=== PATIENT | female | born 1980 | race Two or more races ===

== ENCOUNTER 2024-09-23 00:21 | Observation (INO) | payer OTHER ==
[2024-09-23] VITALS (18 sets, daily range): BP systolic 108–123; BP diastolic 62–76; PULSE 78–99; RESP 17–22; TEMP 97.9–100.1; O2SAT 92–98
[~2024-09-23] VITALS: Ht 165.1 cm; Wt 179.1 kg
--- NOTE | 2024-09-23 00:37 | ED.PDOC ---
SOB-HPI HPI Comments 44-year-old female who came to ER via EMS for shortness of breath. Patient denies any medical problems. States for the past 5 days she has been having flu-like symptoms, including fever, chills, congestion, chest pressure, productive cough, shortness of breath, back pains. States entire household is sick with similar symptoms. Patient went to urgent care, and was prescribed antibiotics, which she finished for 5 days. Patient is still presenting with symptoms. Saturating 89% room air, was placed on 4 liters/minute cannula and it improved to 98% Chief Complaint: Shortness of breath Time Seen by MD: 00:36 Reviewed notes: Nurses Notes Information Source: Patient, Emergency Med Personnel Mode of Arrival: EMS Severity: Moderate Timing: Days Duration: Intermittent Context: At Rest, With Light Exertion PE Risk Factors: None History of: Recent Antibiotic Prehospital treatment: Oxygen Associated Signs and Symptoms: Cough, Chest Pain Quality: Pressure Radiation: No Radiation Location: Chest (R), Chest (L) If cough with SOB: Productive Past Medical History PAST MEDICAL HISTORY: Denies Surgical History: Denies all surgeries [employer]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 all [employer]OTE [employer]OL AS[employer]ER Hx Family History Family History: Reviewed,noncontributory to illness Social History Smoker: Non-Smoker Alcohol: Denies ETOH Use Drugs: Denies Drug Use Lives In: Home Constitutional: denies: chills, diaphoresis, fatigue, fever, malaise, sweats, weakness, others EENTM: reports: nose congestion; denies: blurred vision, double vision, ear bleeding, ear discharge, ear drainage, ear pain, ear ringing, eye pain, eye redness, hearing loss, mouth pain, mouth swelling, nasal discharge, nose bleeding, nose pain, photophobia, tearing, throat pain, throat swelling, voice changes, others Respiratory: reports: cough, SOB at rest, shortness of breath, SOB with excertion; denies: hemoptysis, orthopnea, stridor, wheezing, others Cardiovascular: reports: chest pain; denies: dizzy spells, diaphoresis, Dyspnea on exertion, edema, irregular heart beat, left arm pain, lightheadedness, palpitations, PND, syncope, others Gastrointestinal: denies: abdomen distended, abdominal pain, blood streaked bowels, constipated, diarrhea, dysphagia, difficulty swallowing, hematemesis, melena, nausea, poor appetite, poor fluid intake, rectal bleeding, rectal pain, vomiting, others Genitourinary: denies: abnormal vagina bleeding, burning, dyspareunia, dysuria, flank pain, frequency, hematuria, incontinence, pain, , vagina discharge, urgency, others Neurological: denies: dizziness, fainting, headache, left sided numbness, left sided weakness, numbness, paresthesia, pre-existing deficit, right sided numbness, right sided weakness, seizure, speech problems, tingling, tremors, weakness, others Musculoskeletal: reports: back pain; denies: gout, joint pain, joint swelling, muscle pain, muscle stiffness, neck pain, others Integumetry: denies: bruises, change in color, change in hair/nails, dryness, laceration, lesions, lumps, rash, wounds, others Allergic/Immunocompromised: denies: Difficulty Healing, Frequent Infections, Hives, Itching, others Hematologic/Lymphatic: denies: anemia, blood clots, easy bleeding, easy bruisi ng, swollen glands, others Endocrine: denies: excessive hunger, excessive sweating, excessive thirst, exce ssive urination, flushing, intolerance to cold, intolerance to heat, unexplained weight gain, unexplained weight loss, others Psychiatric: denies: anxiety, bipolar disorder, depression, hopeless, panic disorder, schizophrenia, sleepless, suicidal, others Physical Exam General Appearance: No Apparent Distress, Normal HEENT: Normal ENT Inspection, Pharynx Normal, TMs Normal Neck: Full Range of Motion, Non-Tender, Normal, Normal Inspection Respiratory: Chest Non-Tender, Lungs Clear, No Accessory Muscle Use, No Respi ratory Distress, Normal Breath Sounds Cardiovascular: No Edema, No JVD, No Murmur, No Gallop, Normal Peripheral Pulses, Regular Rate/Rhythm Breast Exam: Deferred Gastrointestinal: No Organomegaly, Non Tender, No Pulsatile Mass, Normal Bowel Sounds, Soft Genitalia: Deferred Pelvic: Deferred Rectal: Deferred Extremities: No calf tenderness, Normal capillary refill, Normal inspection, Normal range of motion, Non-tender, No pedal edema Musculoskeletal : Apperance: Normal Neurologic: Alert, floor and wall applier liquid II-XII nml as Tested, No Motor Deficits, Normal Affect, Normal Mood, No Sensory Deficits Cerebellar Function: Normal Reflexes: Normal Skin: Dry, Normal Color, Warm Lymphatic: No Adenopathy Was a procedure done? Was a procedure done?: No Differential Dx Differential Diagnosis: Asthma, Bronchitis, CHF, COPD, Panic Attack, Pneumonia, Respiratory Distress, Pharyngitis, URI X-Ray, Labs, Meds, VS Vital Signs Date Time Temp Pulse Resp B/P (MAP) Pulse Ox O2 Delivery O2 Flow Rate FiO2 09/23/24 00:54 18 95 Nasal Cannula* 4 36 09/23/24 00:37 99.8 117 18 151/77 (101) 97 09/23/24 00:37 18 98 Nasal Cannula* 4 36 09/23/24 00:34 93 Lab Test 09/23/24 01:30 09/23/24 00:40 Range/Units Troponin I High Sensitivity Pending < 3 L </=34 ng/L White Blood Count 3.1 L 4.4-10.8 10^3/uL Red Blood Count 4.95 4.0-5.20 10^6/uL Hemoglobin 11.8 L 12.2-16.2 g/dL Hematocrit 37.7 36.0-46.0 % Mean Corpuscular Volume 76.0 L 80.0-100.0 fL Mean Corpuscular Hemoglobin 23.8 L 28.0-32.0 pg Mean Corpuscular Hemoglobin Concent 31.3 L 32.0-36.0 g/dL Red Cell Distribution Width 20.6 H 11.8-14.3 % Platelet Count 184 140-450 10^3/uL Mean Platelet Volume 8.5 6.9-10.8 fL Neutrophils (%) (Auto) 61.1 37.0-80.0 % Lymphocytes (%) (Auto) 30.3 10.0-50.0 % Monocytes (%) (Auto) 7.5 0.0-12.0 % Eosinophils (%) (Auto) 0.3 0.0-7.0 % Basophils (%) (Auto) 0.8 0.0-2.0 % Neutrophils # (Auto) 1.9 1.6-8.6 10 ^3/uL Lymphocytes # (Auto) 0.9 0.4-5.4 10 ^3/uL Monocytes # (Auto) 0.2 0-1.3 10 ^3/uL Eosinophils # (Auto) 0 0-0.8 10 ^3/uL Basophils # (Auto) 0 0-0.2 10 ^3/uL Nucleated Red Blood Cells 0.2 % Sodium Level 138 136-145 mmol/L Potassium Level 3.8 3.5-5.1 mmol/L Chloride Level 108 H 98-107 mmol/L Carbon Dioxide Level 22 20-31 mmol/L Anion Gap 8 5-15 Blood Urea Nitrogen 9 9-23 mg/dL Creatinine 0.62 0.550-1.02 mg/dL Glomerular Filtration Rate Calc 113 >90 mL/min BUN/Creatinine Ratio 14.5 10.0-20.0 Serum Glucose 119 H 74-106 mg/dL Lactic Acid Level Pending Calcium Level 8.9 8.7-10.4 mg/dL Total Bilirubin 0.3 0.2-1.0 mg/dL Aspartate Amino Transferase (AST) 59 H 13-40 U/L Alanine Aminotransferase (ALT) 40 7-40 U/L Alkaline Phosphatase 148 H 46-116 U/L B-Type Natriuretic Peptide Pending Total Protein 6.8 5.7-8.2 g/dL Albumin 3.8 3.2-4.8 g/dL Current Medications Medications (Trade) Dose Ordered Sig/Arianne Route Start Time Stop Time Status Last Admin Albuterol (Ventolin Medneb) 5 mg ONCE ONCE [facility] 09/23/24 00:30 09/23/24 00:31 DC 09/23/24 00:53 Ipratropium [place] (Atrovent Medneb) 0.5 mg ONCE ONCE [facility] 09/23/24 00:30 09/23/24 00:31 DC 09/23/24 00:53 EXAM: XY CHEST PORTABLE FINDINGS: Lines and tubes: None Chest: The heart size and pulmonary vasculature is within normal limits. Patchy airspace opacities in the bilateral lungs. No pneumothorax. The osseous structures are grossly intact. IMPRESSION: Patchy airspace opacities in the bilateral lungs which could reflect multifocal pneumonia and/or pulmonary edema. Time of 1ST Reevaluation: 00:30 Reevaluation 1ST: Unchanged Time of 2ND Reevaluation: 01:58 Reevaluation 2ND: Unchanged Patient Education/Counseling: Diagnosis, Treatment Family Education/Counseling: No Family Present Departure 1 Departure Time of Disposition: :58 Impression: Primary Impression: Respiratory failure with hypoxia Additional Impression: Multifocal pneumonia Disposition: 09 ADMITTED INPATIENT Condition: Guarded Critical Care Note Critical Care Time?: Yes (35 min-critical care time only) Critical care comment: Total critical care time: Approximately 36 minutes Due to a high probability of clinically significant, life threatening deterioration, the patient required my highest level of preparedness to intervene emergently and I personally spent this critical care time directly and personally managing the patient. This critical care time included obtaining a history; examining the patient; pulse oximetry; ordering and review of studies; arranging urgent treatment with development of a management plan; evaluation of patient's response to treatment; frequent reassessment; and, discussions with other providers. This critical care time was performed to assess and manage the high probability of imminent, life-threatening deterioration that could result in multi-organ failure. It was exclusive of separately billable procedures and treating other patients. Stability Stability form required: No Heart Score Heart Score: Heart Score Response (Comments) Value History N/A 0 EKG N/A 0 Age N/A 0 Risk Factors N/A 0 Troponin N/A 0 Total 0 I personally scribed for JOANNE MÁRQUEZ MD ([email or web address]) on 09/23/24 at 00:37. Electronically submitted by Leonard Tabor ([email or web address]). I personally scribed for JOANNE MÁRQUEZ MD ([email or web address]) on 09/23/24 at 01:56. Electronically submitted by Leonard Tabor ([email or web address]). JOANNE MÁRQUEZ MD Sep 23, 2024 00:37
[2024-09-23] MEDS: IPRATROPIUM BROM 0.5 MG/2.5ML INH SOL HHN ONE (00:53)
[2024-09-23] MEDS: ALBUTEROL SULF 2.5 MG/0.5ML(0.5%) NEB SOLN HHN ONE (00:53)
[2024-09-23 01:14] LABS: Basophils # (auto) 0 10 ^3/uL (0-0.2); Basophils % (auto) 0.8 % (0.0-2.0); Eosinophils # (auto) 0 10 ^3/uL (0-0.8); Lymphocytes # (auto) 0.9 10 ^3/uL (0.4-5.4); Monocytes # (auto) 0.2 10 ^3/uL (0-1.3); Neutrophils # (auto) 1.9 10 ^3/uL (1.6-8.6); Nucleated Red Blood Cells % 0.2 %; Red Blood Cells 4.95 10^6/uL (4.0-5.20); White Blood Cell 3.1 10^3/uL (4.4-10.8)
[2024-09-23 01:16] LABS: Eosinophils % (auto) 0.3 % (0.0-7.0); Hematocrit 37.7 % (36.0-46.0); Hemoglobin 11.8 g/dL (12.2-16.2); Lymphocytes % (auto) 30.3 % (10.0-50.0); Mean Corpuscular Hemoglobin 23.8 pg (28.0-32.0); Mean Corpuscular Hgb Conc. 31.3 g/dL (32.0-36.0); Monocytes % (auto) 7.5 % (0.0-12.0); Neutrophils % (auto) 61.1 % (37.0-80.0); Platelet Count (auto) 184 10^3/uL (140-450); Red Cell Distribution Width 20.6 % (11.8-14.3)
--- NOTE | 2024-09-23 01:32 | DVH ---
EXAM: XY CHEST PORTABLE CLINICAL HISTORY: SOB TECHNIQUE: Single AP view of the chest WID: COMPARISON: None FINDINGS: Lines and tubes: None Chest: The heart size and pulmonary vasculature is within normal limits. Patchy airspace opacities in the bilateral lungs. No pneumothorax. The osseous structures are grossly intact. IMPRESSION: Patchy airspace opacities in the bilateral lungs which could reflect multifocal pneumonia and/or pulm onary edema.
[2024-09-23 01:34] LABS: Albumin 3.8 g/dL (3.2-4.8); Anion Gap 8 (5-15); BUN/Creatinine Ratio 14.5 (10.0-20.0); Calcium 8.9 mg/dL (8.7-10.4); Carbon Dioxide 22 mmol/L (20-31); Potassium 3.8 mmol/L (3.5-5.1); Sodium 138 mmol/L (136-145); Total Protein 6.8 g/dL (5.7-8.2)
[2024-09-23 01:35] LABS: Alanine Aminotransferase 40 U/L (7-40); Alkaline Phosphatase 148 U/L (46-116); Aspartate Aminotransferase 59 U/L (13-40); Bilirubin, Total 0.3 mg/dL (0.2-1.0); Blood Urea Nitrogen 9 mg/dL (9-23); Chloride 108 mmol/L (98-107); Glucose 119 mg/dL (74-106)
[2024-09-23] MEDS: ACETAMINOPHEN 325 MG TAB PO ONE (05:07)
[2024-09-23] MEDS: predniSONE 20 MG TAB PO ONE (05:07)
[2024-09-23] MEDS: IPRATROPIUM BROM 0.5 MG/2.5ML INH SOL NEB ONE (05:10)
[2024-09-23] MEDS: ALBUTEROL SULF 2.5 MG/0.5ML(0.5%) NEB SOLN NEB ONE (05:10)
[2024-09-23] MEDS: cefTRIAXone 1GM/50ML D5W 50 ML IV ONE (05:17)
[2024-09-23] MEDS: AZITHROMYCIN 500MG/ 250ML 250 ML IV ONE (05:42)
[2024-09-23] MEDS: DexAMETHasone SOD PHOS 10MG/1ML VIAL INJ IV ONE (05:58)
[2024-09-23] MEDS ORDERED: NITROGLYCERIN 0.4 MG SL TAB SL PRN (06:00)
[2024-09-23] MEDS: IPRATROPIUM BROM 0.5 MG/2.5ML INH SOL NEB SCH (06:00)
[2024-09-23] MEDS: ALBUTEROL SULF 2.5 MG/0.5ML(0.5%) NEB SOLN NEB SCH (06:00)
[2024-09-23] MEDS ORDERED: MORPHINE SULFATE INJ 2 MG/ml SYRG IV PRN (06:00)
[2024-09-23] MEDS ORDERED: LEVO25TA6 PO (06:17)
[2024-09-23] MEDS ORDERED: BENZ200C64 PO (06:18)
[2024-09-23] MEDS ORDERED: IBUP-1455 PO (06:18)
--- NOTE | 2024-09-23 06:45 | ECG ---
[facility] Test Date: 2024-09-23 Test Time: 00:34:51 Pat Name: KIKI MEDEIROS Department: ER Room: 0250T Gender: F [employer] Picture Set Up Worker: IVETTE : 1980 Requested By: JOANNE MÁRQUEZ Order Number: [id number] Reading MD: Melo Cruz Measurements Intervals [place] Rate: 93 P: 24 OH: 148 QRS: 43 QRSD: 99 T: 6 QT: 373 QTc: 464 Interpretive Statements Sinus rhythm Low voltage, precordial leads Electronically Signed On 09-23-2024 14:49:46 PST by Melo Cruz Please click the below link to view image of tracing.
--- NOTE | 2024-09-23 07:00 | DVHHP2 ---
Admitting Diagnosis: Acute respiratory failure with hypoxia due to bilateral PNA History of Present Illness HPI 44 y.o. female with morbid obesity arrived to the ED c/o SOB and cough that started 5 days ago and worsened. Patient informed that her children and her are also sick. Patient went to 5 days ago and was given Abx but felt no improvement. She came to the ER stating that she has SOB and would like to be admitted Home Meds Reported Medications Benzonatate (Benzonatate) 200 Mg Cap, 1 CAP PO TID 09/23/24 Ibuprofen Micronized (Ibuprofen) 800 Mg Tab, 1 TAB PO Q8HPRN PRN for PAIN 09/23/24 Levothyroxine Sodium (Levothyroxine Sodium) 25 Mcg Tab, 1 TAB PO DAILY 09/23/24 Past Medical History Patient Family History: Diabetes mellitus G8 FATHER Review of Systems Pulmonary/Respiratory: Dyspnea, Cough H&P Exam Vital Signs Vital Signs Date Time Temp Pulse Resp B/P (MAP) Pulse Ox O2 Delivery O2 Flow Rate FiO2 09/23/24 06:42 88 20 98 09/23/24 06:38 Nasal Cannula* 4 36 09/23/24 05:00 100.1 122/73 (89) 100.1 General Appeara: Mild distress, Obese Head Exam: Normal inspection Neck Exam: Normal inspection Eye Exam: bilateral eye PERRL, bilateral eye EOMI Pulmonary/Respiratory: Rhonci Cardiovascular/Chest: Tachycardia Abdominal Exam: No tenderness Neuro/Mental St: Alert, Oriented Labs/Xrays Labs Test 09/23/24 05:50 09/23/24 01:30 09/23/24 00:40 Range/Units Troponin I High Sensitivity < 3 L </=34 ng/L White Blood Count 3.1 L 4.4-10.8 10^3/uL Red Blood Count 4.95 4.0-5.20 10^6/uL Hemoglobin 11.8 L 12.2-16.2 g/dL Hematocrit 37.7 36.0-46.0 % Mean Corpuscular Volume 76.0 L 80.0-100.0 fL Mean Corpuscular Hemoglobin 23.8 L 28.0-32.0 pg Mean Corpuscular Hemoglobin Concent 31.3 L 32.0-36.0 g/dL Red Cell Distribution Width 20.6 H 11.8-14.3 % Platelet Count 184 140-450 10^3/uL Mean Platelet Volume 8.5 6.9-10.8 fL Neutrophils (%) (Auto) 61.1 37.0-80.0 % Lymphocytes (%) (Auto) 30.3 10.0-50.0 % Monocytes (%) (Auto) 7.5 0.0-12.0 % Eosinophils (%) (Auto) 0.3 0.0-7.0 % Basophils (%) (Auto) 0.8 0.0-2.0 % Neutrophils # (Auto) 1.9 1.6-8.6 10 ^3/uL Lymphocytes # (Auto) 0.9 0.4-5.4 10 ^3/uL Monocytes # (Auto) 0.2 0-1.3 10 ^3/uL Eosinophils # (Auto) 0 0-0.8 10 ^3/uL Basophils # (Auto) 0 0-0.2 10 ^3/uL Nucleated Red Blood Cells 0.2 % Sodium Level 138 136-145 mmol/L Potassium Level 3.8 3.5-5.1 mmol/L Chloride Level 108 H 98-107 mmol/L Carbon Dioxide Level 22 20-31 mmol/L Anion Gap 8 5-15 Blood Urea Nitrogen 9 9-23 mg/dL Creatinine 0.62 0.550-1.02 mg/dL Glomerular Filtration Rate Calc 113 >90 mL/min BUN/Creatinine Ratio 14.5 10.0-20.0 Serum Glucose 119 H 74-106 mg/dL Lactic Acid Level 1.3 0.4-2.0 mmol/L Calcium Level 8.9 8.7-10.4 mg/dL Total Bilirubin 0.3 0.2-1.0 mg/dL Aspartate Amino Transferase (AST) 59 H 13-40 U/L Alanine Aminotransferase (ALT) 40 7-40 U/L Alkaline Phosphatase 148 H 46-116 U/L B-Type Natriuretic Peptide 16.80 0-100 pg/mL Total Protein 6.8 5.7-8.2 g/dL Albumin 3.8 3.2-4.8 g/dL Assessment/Plan Problem List: (1) Respiratory failure with hypoxia (2) Multifocal pneumonia Plan Oxygen, RT, steroids, Abx, Pulmonology consult Plan discussed with: Patient CORAL CASIANO MD Sep 23, 2024 07:00
[2024-09-23 07:18] LABS: COVID19 ANTIGEN SOFIA FIA NEGATIVE (NEGATIVE); Rapid Influenza A Negative (Negative); Rapid Influenza B Negative (Negative)
[2024-09-23] MEDS ORDERED: levoFLOXacin 500MG 100 ML IV SCH (10:00)
[2024-09-23] MEDS: levoFLOXacin 250MG 50 ML IV SCH (11:25)
[2024-09-23 11:42] LABS: Base Excess -3.2 mmol/L (-2.0-3.0)
--- NOTE | 2024-09-23 12:44 | DVHINCON2 ---
Date of service: Sep 23, [address] Vargas Reason for Consultation Pneumonia History of Present Illness A 44-year-old woman with PMHx of morbid obesity s/p gastric sleeve, presents to the ED today c/o shortness of breath and cough that started 5 days ago and worsened. Patient relates that her children and are also sick. She went to 5 days ago and was given antibiotics but failed to improve. Patient thus presented to ER d/t SOB, requesting admission. Patient was admitted for further care and pulmonary consultation is requested for evaluation and management of acute hypoxic respiratory failure and pneumonia. Review of Systems: 14-point review of systems negative unless otherwise noted above. Past Medical History: Morbid obesity Past Surgical History: Gastric sleeve procedure Medications: Reviewed. Allergies: Penicillins. Family History: Diabetes mellitus. Social History: Nonsmoker. No alcohol or illicit drug use. Family History: Diabetes mellitus G8 FATHER Allergies: Coded Allergies: Penicillins (Verified Allergy, Unknown, 09/23/24) Home Meds Active Scripts Ipratropium-Albuterol (Ipratropium [place]/Albut) 1 Paresh Paresh, 1 PARESH IN Q6HR for 30 Days, #90 ML 2 Refills Prov:YOSEPH VARGAS DO 09/25/24 Prednisone (Prednisone) 20 Mg Tab, 20 MG PO DAILY, #5 TAB 0 Refills Prov:YOSEPH VARGAS DO 09/25/24 Levofloxacin Hemihydrate (LEVOFLOXACIN) 750 Mg Tab, 750 MG PO DAILY, #10 TAB 0 Refills Prov:YOSEPH VARGAS DO 09/25/24 Reported Medications Benzonatate (Benzonatate) 200 Mg Cap, 1 CAP PO TID 09/23/24 Ibuprofen Micronized (Ibuprofen) 800 Mg Tab, 1 TAB PO Q8HPRN PRN for PAIN 09/23/24 Levothyroxine Sodium (Levothyroxine Sodium) 25 Mcg Tab, 1 TAB PO DAILY 09/23/24 Current Medications Current Medications Medications (Trade) Dose Ordered Sig/Arianne Route PRN Reason Start Time Stop Time Status Last Admin Nitroglycerin (Ntrostat Sublingual) 0.4 mg Q5MINP PRN SL FOR CHEST PAIN 09/23/24 06:00 Morphine Sulfate 2 mg Q30M PRN IV FOR CHEST PAIN 09/23/24 06:00 Levofloxacin/ Dextrose 100 ml @ 100 mls/hr DAILY IV 09/23/24 10:00 09/23/24 10:44 DC Dexamethasone Sodium Phosphate (Decadron Injection) 6 mg DAILY IV 09/24/24 10:00 Albuterol (Ventolin Medneb) 2.5 mg Q6HR NEB 09/23/24 06:00 09/23/24 11:43 Ipratropium [place] (Atrovent Medneb) 0.5 mg Q6HP NEB 09/23/24 06:00 09/23/24 11:43 Levofloxacin 50 ml @ 50 mls/hr DAILY@1100,1200 IV 09/23/24 11:00 09/23/24 12:30 Acetaminophen/ Hydrocodone Bitart ([place] 5/325MG Tab) 1 tab Q6HPRN PRN PO MODERATE PAIN (4-6 PAIN SCALE) 09/23/24 11:15 Acetaminophen/ Hydrocodone Bitart ([place] 10/325MG Tab) 1 tab Q6HP PRN PO SEVERE PAIN (7-10 PAIN SCALE) 09/23/24 11:15 Acetaminophen (Tylenol Tablet) 325 mg Q4HP PRN PO MILD PAIN (1-3 PAIN SCALE) 09/23/24 11:15 Vital Signs Vital Signs Date Time Temp Pulse Resp B/P (MAP) Pulse Ox O2 Delivery O2 Flow Rate FiO2 09/23/24 11:48 94 Nasal Cannula 4.0 09/23/24 11:48 36 09/23/24 11:43 88 20 09/23/24 09:50 98.3 108/62 (77) 98.3 Physical Exam Gen.: Patient lying in bed in no apparent distress. On supplemental oxygen. Head: Normocephalic, atraumatic. Eyes: EOMI/PERRLA. Ears: Normal hearing. Normal anatomy. Neck/trachea: Trachea midline, supple. Nose: Normal external anatomy. Mouth: Moist mucous membranes. Chest: Decreased air entry bilaterally. No wheezing or rhonchi. Cardiovascular: Positive S1, positive S2. Regular rate and rhythm. Abdomen: Positive bowel sounds in all 4 quadrants. Soft, non-tender, non-distended. : Deferred. Rectal: Deferred. Skin: Warm, dry. Intact. Extremities: 2+ radial pulses bilaterally. No lower extremity edema. Neuro: Awake, alert, oriented x3. No gross motor or sensory deficits. Cranial nerves II through XII intact. Gait not assessed. Labs/Diagnostic Data Labs Test 09/23/24 11:25 09/23/24 05:50 09/23/24 01:30 09/23/24 00:40 Range/Units Blood Gas Specimen Type Arterial Blood Gas Sample Site Right brachial Blood Gas Patient Temperature 37.0 Arterial Blood Date Drawn [id number] Arterial Blood pH 7.432 7.350-7.450 Arterial Blood Partial Pressure CO2 30.8 L 32.0-45.0 mmHg Arterial Blood Partial Pressure O2 88.0 83.0-108.0 mmHg Arterial Blood HCO3 20.1 L 21.0-28.0 mmol/L Arterial Blood Oxygen Saturation 95.9 94.0-98.0 % Arterial Blood Base Excess -3.2 L -2.0-3.0 mmol/L Arterial Blood Oxyhemoglobin 95.0 94.0-98.0 % Arterial Blood Carboxyhemoglobin 0.7 0.5-1.5 % Arterial Blood Methemoglobin 0.2 0.0-1.5 % Germain Test Yes Blood Gas Total Hemoglobin 12.90 12.0-16.0 g/dL Blood Gas Modality Nasal cannula FiO2 % 36.0 Influenza Type A Antigen Negative Negative Influenza Type B Antigen Negative Negative SARS-CoV-2 Antigen (Rapid) Negative NEGATIVE Troponin I High Sensitivity < 3 L </=34 ng/L White Blood Count 3.1 L 4.4-10.8 10^3/uL Red Blood Count 4.95 4.0-5.20 10^6/uL Hemoglobin 11.8 L 12.2-16.2 g/dL Hematocrit 37.7 36.0-46.0 % Mean Corpuscular Volume 76.0 L 80.0-100.0 fL Mean Corpuscular Hemoglobin 23.8 L 28.0-32.0 pg Mean Corpuscular Hemoglobin Concent 31.3 L 32.0-36.0 g/dL Red Cell Distribution Width 20.6 H 11.8-14.3 % Platelet Count 184 140-450 10^3/uL Mean Platelet Volume 8.5 6.9-10.8 fL Neutrophils (%) (Auto) 61.1 37.0-80.0 % Lymphocytes (%) (Auto) 30.3 10.0-50.0 % Monocytes (%) (Auto) 7.5 0.0-12.0 % Eosinophils (%) (Auto) 0.3 0.0-7.0 % Basophils (%) (Auto) 0.8 0.0-2.0 % Neutrophils # (Auto) 1.9 1.6-8.6 10 ^3/uL Lymphocytes # (Auto) 0.9 0.4-5.4 10 ^3/uL Monocytes # (Auto) 0.2 0-1.3 10 ^3/uL Eosinophils # (Auto) 0 0-0.8 10 ^3/uL Basophils # (Auto) 0 0-0.2 10 ^3/uL Nucleated Red Blood Cells 0.2 % Sodium Level 138 136-145 mmol/L Potassium Level 3.8 3.5-5.1 mmol/L Chloride Level 108 H 98-107 mmol/L Carbon Dioxide Level 22 20-31 mmol/L Anion Gap 8 5-15 Blood Urea Nitrogen 9 9-23 mg/dL Creatinine 0.62 0.550-1.02 mg/dL Glomerular Filtration Rate Calc 113 >90 mL/min BUN/Creatinine Ratio 14.5 10.0-20.0 Serum Glucose 119 H 74-106 mg/dL Lactic Acid Level 1.3 0.4-2.0 mmol/L Calcium Level 8.9 8.7-10.4 mg/dL Total Bilirubin 0.3 0.2-1.0 mg/dL Aspartate Amino Transferase (AST) 59 H 13-40 U/L Alanine Aminotransferase (ALT) 40 7-40 U/L Alkaline Phosphatase 148 H 46-116 U/L B-Type Natriuretic Peptide 16.80 0-100 pg/mL Total Protein 6.8 5.7-8.2 g/dL Albumin 3.8 3.2-4.8 g/dL Assessment Impression: Acute hypoxic respiratory failure Multifocal Pneumonia, likely gram negative Atelectasis Morbid obesity, BMI 65.7 s/p gastric sleeve Plan: Supplemental oxygen 4 LPM NC Titrate to keep O2 sats above 92%. Taper O2 as tolerated. ABG reviewed, compensated. CXR notable for bilateral patchy airspace opacities which could reflect multifocal pneumonia and/or pulmonary edema. Continue bronchodilators. Continue antibiotics for pneumonia Incentive spirometry d/t atelectasis Monitor renal function. Monitor electrolytes. Supplement as necessary. Monitor ins and outs. Diet and lifestyle modifications for weight reduction Morbid obesity - complicates all care DVT prophylaxis. Prognosis: Poor given patient's multiple co-morbidities. Rest of plan per hospitalist and other consultants. Thank you, Dr. Vargas, for allowing me to participate in this patient's care. Further recommendations will depend on the patient's clinical course. Please do not hesitate to contact me if you have any questions or concerns. This medical document was created using an electronic medical record system with [employer] dictation system. Although these documentations are being carefully reviewed, there may still be some phonetic and typographical changes. The errors are purely typographical, due to imperfection on the software program, and do not reflect any compromise in the patient's medical care. Plan discussed with: Patient, Other (ELENA Thurston/Dr. Vargas) FALLON MANRIQUE MD Sep 23, 2024 12:44
[2024-09-23] MEDS: HYDROcodone-ACET 5/325MG TAB PO PRN (20:23)
[2024-09-24] VITALS (16 sets, daily range): BP systolic 115–127; BP diastolic 20–87; PULSE 78–123; RESP 18–22; TEMP 97.3–98.7; O2SAT 90–98
[2024-09-24 07:39] LABS: Alanine Aminotransferase 36 U/L (7-40); Albumin 3.7 g/dL (3.2-4.8); Anion Gap 7 (5-15); Basophils # (auto) 0 10 ^3/uL (0-0.2); Carbon Dioxide 26 mmol/L (20-31); Chloride 107 mmol/L (98-107); Eosinophils # (auto) 0 10 ^3/uL (0-0.8); Mean Corpuscular Volume 75.3 fL (80.0-100.0); Monocytes # (auto) 0.4 10 ^3/uL (0-1.3); Potassium 4.1 mmol/L (3.5-5.1); Red Cell Distribution Width 20.3 % (11.8-14.3); Sodium 140 mmol/L (136-145); Total Protein 6.7 g/dL (5.7-8.2)
[2024-09-24 07:41] LABS: Basophils % (auto) 0.2 % (0.0-2.0); Hemoglobin 11.7 g/dL (12.2-16.2); Lymphocytes # (auto) 0.8 10 ^3/uL (0.4-5.4); Lymphocytes % (auto) 20.8 % (10.0-50.0); Mean Corpuscular Hemoglobin 24.5 pg (28.0-32.0); Mean Corpuscular Hgb Conc. 32.6 g/dL (32.0-36.0); Monocytes % (auto) 9.8 % (0.0-12.0); Neutrophils # (auto) 2.7 10 ^3/uL (1.6-8.6); Neutrophils % (auto) 69.2 % (37.0-80.0); Nucleated Red Blood Cells % 0.1 %; Platelet Count (auto) 176 10^3/uL (140-450); Red Blood Cells 4.78 10^6/uL (4.0-5.20)
[2024-09-24 07:42] LABS: Alkaline Phosphatase 123 U/L (46-116); Aspartate Aminotransferase 52 U/L (13-40); Bilirubin, Total 0.3 mg/dL (0.2-1.0); Blood Urea Nitrogen 9 mg/dL (9-23); Glucose 117 mg/dL (74-106)
[2024-09-24] MEDS: DexAMETHasone SOD PHOS 10MG/1ML VIAL INJ IV SCH (10:11)
--- NOTE | 2024-09-24 13:01 | DVH ---
CLINICAL INFORMATION: 44 years old, Female; Further eval resp failure, pneumonia vs pulm vasc conge stion. TECHNIQUE: Axial CT images of the chest were obtained after the uneventful administration of 100 mL o f Omnipaque 300 IV contrast. Coronal and sagittal reformatted images were obtained, reviewed, and sto red. One or more of the following dose reduction techniques were used: Automated exposure control. Ad justment of mA and/or kV according to patient size. CTDIvol = 18.53 mGy DLP = 721.78 mGy-cm COMPARISON: Chest radiograph dated 09/23/2024. FINDINGS: Aorta: No aneurysm or dissection. Cardiac: Heart size is within normal limits. No significant calcification. Mediastinum/andrew: No mass or adenopathy. Lungs: Bilateral perihilar airspace consolidations additional smaller patchy consolidations and groun d-glass opacities in both lungs no pneumothorax or pleural effusion Pulmonary arteries: No gross abnormality. Chest wall: No mass or other abnormality. Upper abdomen: Hepatic steatosis. Cholecystectomy. Bones: No acute fracture or suspicious intraosseous lesions. IMPRESSION: 1. Bilateral multifocal consolidations and ground-glass opacities, may be infectious or inflammatory in nature, including multifocal pneumonia pulmonary edema could also have a similar appearance in the appropriate clinical setting. Correlate with clinical findings. 2. Hepatic steatosis.
--- NOTE | 2024-09-24 13:30 | DVHPN2 ---
Progress Note - Dictate Date Seen: Sep 24, 2024 Medical Necessity Reason Pt with a Central, PICC or Fol: No Subjective Patient continues to note shortness of breath especially when ambulating. vital signs Vital Sign Date Time Temp Pulse Resp B/P (MAP) Pulse Ox O2 Delivery O2 Flow Rate FiO2 09/24/24 13:01 81 18 96 09/24/24 12:56 Nasal Cannula* 3 32 09/24/24 09:00 97.3 125/78 (94) 97.3 Total Intake and Output 09/23/24 09/23/24 09/24/24 15:00 23:00 07:00 Intake Total 100 ml 860 ml 600 ml Balance 100 ml 860 ml 600 ml medications Current Medications Medications Dose Ordered Sig/Arianne Route Start Time Stop Time Status Last Admin Dose Admin Nitroglycerin 0.4 mg Q5MINP PRN SL 09/23/24 06:00 Morphine Sulfate 2 mg Q30M PRN IV 09/23/24 06:00 Dexamethasone Sodium Phosphate 6 mg DAILY IV 09/24/24 10:00 09/24/24 10:11 6 MG Albuterol 2.5 mg Q6HR NEB 09/23/24 06:00 09/24/24 12:56 2.5 MG Ipratropium [place] 0.5 mg Q6HP NEB 09/23/24 06:00 09/24/24 12:56 0.5 MG Levofloxacin 50 ml @ 50 mls/hr DAILY@1100,1200 IV 09/23/24 11:00 09/24/24 12:26 50 MLS/HR Acetaminophen/ Hydrocodone Bitart 1 tab Q6HPRN PRN PO 09/23/24 11:15 09/24/24 10:11 1 TAB Acetaminophen/ Hydrocodone Bitart 1 tab Q6HP PRN PO 09/23/24 11:15 Acetaminophen 325 mg Q4HP PRN PO 09/23/24 11:15 objective General appearance: No acute distress. Morbidly obese Respiratory: Coarse crackles Cardiovascular: Regular rate and rhythm, no murmurs. No edema Abdomen: Soft, nondistended, nontender, bowel sounds present MSK: Normal range of motion. Neuro: Alert, no neurological deficits Psych: Appropriate mood and affect. laboratory and microbiology Laboratory Tests 09/24/24 07:04 Test 09/24/24 07:04 Range/Units Serum Glucose 117 H 74-106 mg/dL Problem List 1. Acute Respiratory Failure 2. Pneumonia due to either gram positive or gram negative organism 3. Morbid Obesity Assessment/Plan -Unlikely obesity hypoventilation syndrome given ABG findings -CT chest ordered to further evaluate pneumonia versus pulmonary edema. Continues to note both possibilities of pulmonary edema and pneumonia. -TTE ordered to evaluate underlying CHF. BNP may be falsely low due to morbid obesity. Cardiology consulted. -Pulmonary consulted -Lasix 40 mg IV x 1 -Goal pulse ox greater than 92% -Continue DuoNebs and steroids -Home oxygen ordered -Full Code Plan discussed with: Patient YOSEPH VARGAS Sep 24, 2024 13:30
[2024-09-24] MEDS: IOHEXOL 300 MG/ML 100ML BOTTLE IJ ONE (14:08)
--- NOTE | 2024-09-24 14:59 | DVHINCON2 ---
Date of service: Sep 24, 2024 Referring Physician Luz Reason for Consultation R/o CHF History of Present Illness This is a 44-year-old female without any PMH who was brought in by EMS with complaint of shortness of breath. Patient states for the past 5 days she has been having flu-like symptoms, including fever, chills, congestion, chest pressure, productive cough, shortness of breath, back pains. Patient reports her entire household is sick with similar symptoms. Patient went to a local urgent care, and was prescribed antibiotics, which she finished for 5 days. Saturating 89% room air, was placed on 4 liters/minute cannula and it improved to 98%. Troponin x2 is negative. Chest x-ray shows patchy airspace opacities in the bilateral lungs which could reflect multifocal pneumonia and/or pulmonary edema. CT chest revealed bilateral multifocal consolidations and ground-glass opacities, may be infectious or inflammatory in nature, including multifocal pneumonia pulmonary edema could also have a similar appearance in the appropriate clinical setting. Hepatic steatosis. Patient was admitted to the hospital. I am asked to consult on this patient. Family History: Diabetes mellitus G8 FATHER Allergies: Coded Allergies: Penicillins (Verified Allergy, Unknown, 09/23/24) Home Meds Reported Medications Benzonatate (Benzonatate) 200 Mg Cap, 1 CAP PO TID 09/23/24 Ibuprofen Micronized (Ibuprofen) 800 Mg Tab, 1 TAB PO Q8HPRN PRN for PAIN 09/23/24 Levothyroxine Sodium (Levothyroxine Sodium) 25 Mcg Tab, 1 TAB PO DAILY 09/23/24 Current Medications Current Medications Medications (Trade) Dose Ordered Sig/Arianne Route PRN Reason Start Time Stop Time Status Last Admin Dexamethasone Sodium Phosphate (Decadron Injection) 6 mg DAILY IV 09/24/24 10:00 09/24/24 10:11 Review of Systems Constitutional: denies: chills, diaphoresis, fatigue, fever, malaise, sweats, weakness, others EENTM: reports: nose congestion; denies: blurred vision, double vision, ear bleeding, ear discharge, ear drainage, ear pain, ear ringing, eye pain, eye redness, hearing loss, mouth pain, mouth swelling, nasal discharge, nose bleeding, nose pain, photophobia, tearing, throat pain, throat swelling, voice changes, others Respiratory: reports: cough, SOB at rest, shortness of breath, SOB with excertion; denies: hemoptysis, orthopnea, stridor, wheezing, others Cardiovascular: reports: chest pain; denies: dizzy spells, diaphoresis, Dyspnea on exertion, edema, irregular heart beat, left arm pain, lightheadedness, palpitations, PND, syncope, others Gastrointestinal: denies: abdomen distended, abdominal pain, blood streaked bowels, constipated, diarrhea, dysphagia, difficulty swallowing, hematemesis, melena, nausea, poor appetite, poor fluid intake, rectal bleeding, rectal pain, vomiting, others Genitourinary: denies: abnormal vagina bleeding, burning, dyspareunia, dysuria, flank pain, frequency, hematuria, incontinence, pain, , vagina discharge, urgency, others Neurological: denies: dizziness, fainting, headache, left sided numbness, left sided weakness, numbness, paresthesia, pre-existing deficit, right sided numbness, right sided weakness, seizure, speech problems, tingling, tremors, weakness, others Musculoskeletal: reports: back pain; denies: gout, joint pain, joint swelling, muscle pain, muscle stiffness, neck pain, others Integumetry: denies: bruises, change in color, change in hair/nails, dryness, laceration, lesions, lumps, rash, wounds, others Allergic/Immunocompromised: denies: Difficulty Healing, Frequent Infections, Hives, Itching, others Hematologic/Lymphatic: denies: anemia, blood clots, easy bleeding, easy bruising, swollen glands, others Endocrine: denies: excessive hunger, excessive sweating, excessive thirst, excessive urination, flushing, intolerance to cold, intolerance to heat, unexplained weight gain, unexplained weight loss, others Psychiatric: denies: anxiety, bipolar disorder, depression, hopeless, panic disorder, schizophrenia, sleepless, suicidal, others Vital Signs Vital Signs Date Time Temp Pulse Resp B/P (MAP) Pulse Ox O2 Delivery O2 Flow Rate FiO2 09/24/24 13:01 81 18 96 09/24/24 12:56 Nasal Cannula* 3 32 09/24/24 09:00 97.3 125/78 (94) 97.3 Physical Exam GENERAL: Awake, alert, oriented. Morbidly obese. LUNGS: Diminished breath sounds. CARDIOVASCULAR: Heart sounds are good. ABDOMEN: Soft. Labs/Diagnostic Data Labs Test 09/24/24 07:04 09/23/24 11:25 09/23/24 05:50 09/23/24 01:30 Range/Units White Blood Count 4.0 #L 4.4-10.8 10^3/uL Red Blood Count 4.78 4.0-5.20 10^6/uL Hemoglobin 11.7 L 12.2-16.2 g/dL Hematocrit 36.0 36.0-46.0 % Mean Corpuscular Volume 75.3 L 80.0-100.0 fL Mean Corpuscular Hemoglobin 24.5 L 28.0-32.0 pg Mean Corpuscular Hemoglobin Concent 32.6 32.0-36.0 g/dL Red Cell Distribution Width 20.3 H 11.8-14.3 % Platelet Count 176 140-450 10^3/uL Mean Platelet Volume 7.9 6.9-10.8 fL Neutrophils (%) (Auto) 69.2 37.0-80.0 % Lymphocytes (%) (Auto) 20.8 10.0-50.0 % Monocytes (%) (Auto) 9.8 0.0-12.0 % Eosinophils (%) (Auto) 0.0 0.0-7.0 % Basophils (%) (Auto) 0.2 0.0-2.0 % Neutrophils # (Auto) 2.7 1.6-8.6 10 ^3/uL Lymphocytes # (Auto) 0.8 0.4-5.4 10 ^3/uL Monocytes # (Auto) 0.4 0-1.3 10 ^3/uL Eosinophils # (Auto) 0 0-0.8 10 ^3/uL Basophils # (Auto) 0 0-0.2 10 ^3/uL Nucleated Red Blood Cells 0.1 % Sodium Level 140 136-145 mmol/L Potassium Level 4.1 3.5-5.1 mmol/L Chloride Level 107 98-107 mmol/L Carbon Dioxide Level 26 20-31 mmol/L Anion Gap 7 5-15 Blood Urea Nitrogen 9 9-23 mg/dL Creatinine 0.60 0.550-1.02 mg/dL Glomerular Filtration Rate Calc 114 >90 mL/min BUN/Creatinine Ratio 15.0 10.0-20.0 Serum Glucose 117 H 74-106 mg/dL Calcium Level 9.0 8.7-10.4 mg/dL Total Bilirubin 0.3 0.2-1.0 mg/dL Aspartate Amino Transferase (AST) 52 H 13-40 U/L Alanine Aminotransferase (ALT) 36 7-40 U/L Alkaline Phosphatase 123 H 46-116 U/L Total Protein 6.7 5.7-8.2 g/dL Albumin 3.7 3.2-4.8 g/dL Beta HCG, Quantitative 1.4 L 1.5-4.2 mIU/mL Blood Gas Specimen Type Arterial Blood Gas Sample Site Right brachial Blood Gas Patient Temperature 37.0 Arterial Blood Date Drawn [id number] Arterial Blood pH 7.432 7.350-7.450 Arterial Blood Partial Pressure CO2 30.8 L 32.0-45.0 mmHg Arterial Blood Partial Pressure O2 88.0 83.0-108.0 mmHg Arterial Blood HCO3 20.1 L 21.0-28.0 mmol/L Arterial Blood Oxygen Saturation 95.9 94.0-98.0 % Arterial Blood Base Excess -3.2 L -2.0-3.0 mmol/L Arterial Blood Oxyhemoglobin 95.0 94.0-98.0 % Arterial Blood Carboxyhemoglobin 0.7 0.5-1.5 % Arterial Blood Methemoglobin 0.2 0.0-1.5 % Germain Test Yes Blood Gas Total Hemoglobin 12.90 12.0-16.0 g/dL Blood Gas Modality Nasal cannula FiO2 % 36.0 Influenza Type A Antigen Negative Negative Influenza Type B Antigen Negative Negative SARS-CoV-2 Antigen (Rapid) Negative NEGATIVE Troponin I High Sensitivity < 3 L </=34 ng/L Test 09/23/24 00:40 Range/Units Lactic Acid Level 1.3 0.4-2.0 mmol/L B-Type Natriuretic Peptide 16.80 0-100 pg/mL Microbiology Date/Time Source Procedure Growth Status 09/23/24 00:40 Blood Blood Culture - Preliminary NO GROWTH AFTER 24 HOURS OF INCUBATION. Resulted Assessment Acute respiratory failure. Pneumonia. Morbid obesity. Plan/Recommendation I agree with your ongoing assessment and care of plan. Morphine and [place] for pain management. Echocardiogram. Diuretics with Lasix. IV antibiotics as ordered. Additional plan as per the hospital course. A total of 45 minutes was spent reviewing the patient record, examining the patient, making a diagnostic and therapeutic plan, discussing this plan with medical personnel, following up on diagnostic studies and following the patient for clinical stability excluding any and all procedures. At least 50% of this time was spent in direct, [id number] contact. Plan discussed with: Patient DEANN BOLIVAR MD Sep 24, 2024 14:01
[2024-09-24] MEDS: FUROSEMIDE 40 MG/4 ML VIAL IV ONE (15:25)
[2024-09-24] MEDS: ACETAMINOPHEN 325 MG TAB PO PRN (15:38)
--- NOTE | 2024-09-24 16:28 | DVHSR ---
APPROVED REPORT EXAM: LIMITED Two-dimensional and M-mode echocardiogram with Doppler and color Doppler. Blood Pressure: 125/78 mmHg INDICATION Pulmonary Edema Rule Out CHF RISK FACTORS Obesity: Height: 5' 5", Weight: 393 DIMENSIONS LVDd5.0 (3.8-5.7cm)LA (2D)3.9 (1.9-4.0cm)Aortic Root3.2 (2.0-3.7cm) LVDs3.4 (2.5-4.0cm)LA (MM) (1.9-4.0cm)Aortic Cusp Exc2.1 (1.5-2.0cm) EF (%) 58.0 (55-70%)Rt. Atrium4.3 (1.9-4.0cm)Asc. Aorta cm IVSd1.3 (0.7-1.1cm)RV (D) (1.8-2.4cm) PWd1.3 (0.7-1.1cm) Mitral Valve MitralMitral Stenosis E wave1.20m/sMV Mean GR.mmHg A wave0.80m/sMV Peak GR.mmHg E/A ratio1.52D MVAcm2 Aortic Valve Aortic ValveAortic Stenosis V11.20m/Fred Mean GR.10mmHg V22.00m/Fred Peak GR.17mmHg LVOT Diameter2.4 (1.8-2.4cm)Doppler AVA2.71cm2 Pulmonic Valve V21.00m/s Other Information Quality : Technically LimitedRhythm : Technically limited study due to body habitus. Conclusion Technically good study. Sinus rhythm. Normal chamber sizes. Valves are normal. EF of 60% with normal RV function. Dopplers unremarkable. No pericardial effusion masses or vegetations.
--- NOTE | 2024-09-24 21:22 | DVHPN2 ---
Progress Note - Dictate Date Seen: Sep 24, 2024 Medical Necessity Reason Pt with a Central, PICC or Fol: No Subjective Patient seen and examined at bedside. Remains on supplemental oxygen Overnight events reviewed. vital signs Vital Sign Date Time Temp Pulse Resp B/P (MAP) Pulse Ox O2 Delivery O2 Flow Rate FiO2 09/24/24 20:00 19 Nasal Cannula* 4 36 09/24/24 20:00 90 09/24/24 19:51 97 09/24/24 17:00 98.7 127/66 (86) 98.7 Total Intake and Output 09/23/24 09/23/24 09/24/24 15:00 23:00 07:00 Intake Total 100 ml 860 ml 600 ml Balance 100 ml 860 ml 600 ml medications Current Medications Medications Dose Ordered Sig/Arianne Route Start Time Stop Time Status Last Admin Dose Admin Nitroglycerin 0.4 mg Q5MINP PRN SL 09/23/24 06:00 Morphine Sulfate 2 mg Q30M PRN IV 09/23/24 06:00 Dexamethasone Sodium Phosphate 6 mg DAILY IV 09/24/24 10:00 09/24/24 10:11 6 MG Albuterol 2.5 mg Q6HR NEB 09/23/24 06:00 09/24/24 19:43 2.5 MG Ipratropium [place] 0.5 mg Q6HP NEB 09/23/24 06:00 09/24/24 19:42 0.5 MG Levofloxacin 50 ml @ 50 mls/hr DAILY@1100,1200 IV 09/23/24 11:00 09/24/24 12:26 50 MLS/HR Acetaminophen/ Hydrocodone Bitart 1 tab Q6HPRN PRN PO 09/23/24 11:15 09/24/24 10:11 1 TAB Acetaminophen/ Hydrocodone Bitart 1 tab Q6HP PRN PO 09/23/24 11:15 Acetaminophen 325 mg Q4HP PRN PO 09/23/24 11:15 09/24/24 15:38 325 MG objective Gen.: Patient lying in bed in no apparent distress. On supplemental oxygen. Head: Normocephalic, atraumatic. Eyes: EOMI/PERRLA. Ears: Normal hearing. Normal anatomy. Neck/trachea: Trachea midline, supple. Nose: Normal external anatomy. Mouth: Moist mucous membranes. Chest: Decreased air entry bilaterally. No wheezing or rhonchi. Cardiovascular: Positive S1, positive S2. Regular rate and rhythm. Abdomen: Positive bowel sounds in all 4 quadrants. Soft, non-tender, non- distended. : Deferred. Rectal: Deferred. Skin: Warm, dry. Intact. Extremities: 2+ radial pulses bilaterally. No lower extremity edema. Neuro: Awake, alert, oriented x3. No gross motor or sensory deficits. Cranial nerves II through XII intact. Gait not assessed. laboratory and microbiology Laboratory Tests 09/24/24 07:04 Test 09/24/24 07:04 Range/Units Serum Glucose 117 H 74-106 mg/dL Assessment/Plan Impression: Acute hypoxic respiratory failure Pneumonia, likely gram negative Atelectasis Morbid obesity, s/p gastric sleeve Events: Remains on supplemental oxygen, 3 LPM NC Taper O2 as tolerated Continue bronchodilators Continue antibiotics Incentive spirometry Antitussive for cough CXR demonstrates no acute opacities. CT chest demonstrates bilateral multifocal opacities. Hepatic steatosis. Pain control Avoid oversedation Labs and imaging reviewed. Rest of plan as noted below. Plan: Supplemental oxygen Titrate to keep O2 sats above 92%. ABG reviewed, compensated. Continue bronchodilators. Continue antibiotics for pneumonia Incentive spirometry d/t atelectasis Monitor renal function. Monitor electrolytes. Supplement as necessary. Monitor ins and outs. Diet and lifestyle modifications for weight reduction Morbid obesity - complicates all care DVT prophylaxis. Prognosis: Poor given patient's multiple co-morbidities. Rest of plan per hospitalist and other consultants. Thank you, Dr. Escobar, for allowing me to participate in this patient's care. Further recommendations will depend on the patient's clinical course. Please do not hesitate to contact me if you have any questions or concerns. This medical document was created using an electronic medical record system with [employer] dictation system. Although these documentations are being carefully reviewed, there may still be some phonetic and typographical changes. The errors are purely typographical, due to imperfection on the software program, and do not reflect any compromise in the patient's medical care. Plan discussed with: Patient, Other (RN Summer) FALLON MANRIQUE MD Sep 24, 2024 21:22
[2024-09-25] VITALS (14 sets, daily range): BP systolic 110–119; BP diastolic 59–79; PULSE 65–87; RESP 18–21; TEMP 97.7–98.9; O2SAT 91–98
--- NOTE | 2024-09-25 07:22 | DVH ---
CLINICAL INFORMATION: 44 years old, Female; PNEUMONIA. TECHNIQUE: Single AP portable chest radiograph was obtained. COMPARISON: XY CHEST PORTABLE on DOS: 09/23/24 FINDINGS: Low lung volumes. Similar-appearing bilateral airspace opacities and interstitial opacities. No pneum othorax. No other significant interval change. IMPRESSION: No significant interval change as detailed above.
[2024-09-25] MEDS ORDERED: NITROGLYCERIN 0.4 MG SL TAB SL PRN (08:15)
[2024-09-25] MEDS ORDERED: MORPHINE SULFATE INJ 2 MG/ml SYRG IV PRN (08:15)
[2024-09-25] MEDS: HYDROcodone-ACET 10/325MG TAB PO PRN (09:25)
[2024-09-25] MEDS ORDERED: LEVO750T40 PO (12:10)
[2024-09-25] MEDS ORDERED: PRED20TA2 PO (12:11)
[2024-09-25] MEDS ORDERED: IPRA0.00 IN (12:11)
--- NOTE | 2024-09-25 21:57 | DVHPN2 ---
Progress Note - Dictate Date Seen: Sep 25, 2024 Medical Necessity Reason Pt with a Central, PICC or Fol: No Subjective Patient was seen and evaluated in follow up. Patient is c/o SOB, patient is on 4 LPM NC. Echocardiogram shows an EF of 60% with normal RV function. vital signs Vital Sign Date Time Temp Pulse Resp B/P (MAP) Pulse Ox O2 Delivery O2 Flow Rate FiO2 09/25/24 16:51 98.9 84 20 94 09/25/24 16:25 119/69 (86) 09/25/24 13:24 Nasal Cannula 3.0 09/25/24 13:24 32 Total Intake and Output 09/24/24 09/24/24 09/25/24 15:00 23:00 07:00 Intake Total 100 ml 300 ml Balance 100 ml 300 ml objective GENERAL: Awake, alert, oriented. Morbidly obese. LUNGS: Diminished breath sounds. CARDIOVASCULAR: Heart sounds are good. ABDOMEN: Soft. laboratory and microbiology Laboratory Tests 09/24/24 07:04 Test 09/24/24 07:04 Range/Units Serum Glucose 117 H 74-106 mg/dL Problem List Acute respiratory failure. Pneumonia. Morbid obesity. Assessment/Plan Continued all current supportive medical care. Morphine and [place] for pain management. Diuretics with Lasix. IV antibiotics as ordered. Additional plan as per the hospital course. Plan discussed with: Patient DEANN BOLIVAR MD Sep 25, 2024 21:57
--- NOTE | 2024-09-25 23:39 | DVHPN2 ---
Progress Note - Dictate Date Seen: Sep 25, 2024 Medical Necessity Reason Pt with a Central, PICC or Fol: No Subjective Patient seen and examined at bedside. Remains on supplemental oxygen Overnight events reviewed. vital signs Vital Sign Date Time Temp Pulse Resp B/P (MAP) Pulse Ox O2 Delivery O2 Flow Rate FiO2 09/25/24 16:51 98.9 84 20 94 09/25/24 16:25 119/69 (86) 09/25/24 13:24 Nasal Cannula 3.0 09/25/24 13:24 32 Total Intake and Output 09/24/24 09/24/24 09/25/24 15:00 23:00 07:00 Intake Total 100 ml 300 ml Balance 100 ml 300 ml objective Gen.: Patient lying in bed in no apparent distress. On supplemental oxygen. Head: Normocephalic, atraumatic. Eyes: EOMI/PERRLA. Ears: Normal hearing. Normal anatomy. Neck/trachea: Trachea midline, supple. Nose: Normal external anatomy. Mouth: Moist mucous membranes. Chest: Decreased air entry bilaterally. No wheezing or rhonchi. Cardiovascular: Positive S1, positive S2. Regular rate and rhythm. Abdomen: Positive bowel sounds in all 4 quadrants. Soft, non-tender, non- distended. : Deferred. Rectal: Deferred. Skin: Warm, dry. Intact. Extremities: 2+ radial pulses bilaterally. No lower extremity edema. Neuro: Awake, alert, oriented x3. No gross motor or sensory deficits. Cranial nerves II through XII intact. Gait not assessed. laboratory and microbiology Laboratory Tests 09/24/24 07:04 Test 09/24/24 07:04 Range/Units Serum Glucose 117 H 74-106 mg/dL Assessment/Plan Impression: Acute hypoxic respiratory failure Pneumonia, likely gram negative Atelectasis Morbid obesity, s/p gastric sleeve Events: Remains on supplemental oxygen, 3 LPM NC Taper O2 as tolerated Continue bronchodilators Continue antibiotics Incentive spirometry Antitussive for cough CXR demonstrates no acute opacities. CT chest demonstrates bilateral multifocal opacities. Hepatic steatosis. Pain control Avoid oversedation Assess for home o2 requirements. Arrange if necessary. Pt stable for discharge home from pulmonary standpoint. Rec outpatient sleep study as pt has multiple risk factors for RALF. Labs and imaging reviewed. Rest of plan as noted below. Plan: Supplemental oxygen Titrate to keep O2 sats above 92%. ABG reviewed, compensated. Continue bronchodilators. Continue antibiotics for pneumonia Incentive spirometry d/t atelectasis Monitor renal function. Monitor electrolytes. Supplement as necessary. Monitor ins and outs. Diet and lifestyle modifications for weight reduction Morbid obesity - complicates all care DVT prophylaxis. Prognosis: Poor given patient's multiple co-morbidities. Rest of plan per hospitalist and other consultants. Thank you, Dr. Escobar, for allowing me to participate in this patient's care. Further recommendations will depend on the patient's clinical course. Please do not hesitate to contact me if you have any questions or concerns. This medical document was created using an electronic medical record system with [employer] computerized dictation system. Although these documentations are being carefully reviewed, there may still be some phonetic and typographical changes. The errors are purely typographical, due to imperfection on the software program, and do not reflect any compromise in the patient's medical care. Plan discussed with: Patient, Other (RN, MD) FALLON MANRIQUE MD Sep 25, 2024 23:39
== END 2024-09-25 19:24 | disposition home or self-care (01) ==
LOC: ER 00:21 → EDBD 00:21 → TELE 05:53 → TELE-EAST 09:00
PROVIDERS: ADMIT Internal Medicine; ATTEND Student in an Organized Health Care Education/Training Program
DX: J96.01 Acute respiratory failure with hypoxia (principal); J18.9 Pneumonia, unspecified organism; E66.01 Morbid (severe) obesity due to excess calories; M54.9 Dorsalgia, unspecified; R07.89 Other chest pain; E11.9 Type 2 diabetes mellitus without complications; J98.11 Atelectasis; K76.0 Fatty (change of) liver, not elsewhere classified; D84.9 Immunodeficiency, unspecified; R10.2 Pelvic and perineal pain; Z68.44 Body mass index [BMI] 60.0-69.9, adult; Z98.890 Other specified postprocedural states; Z79.899 Other long term (current) drug therapy; Z98.84 Bariatric surgery status; Z20.822 Contact with and (suspected) exposure to COVID-19
CPT/HCPCS: 36415; 36600; 71045; 71260; 80053; 82805; 83605; 83880; 84484; 84702; 85025; 87040; 87426; 87804; 93005; 93306; 94640; 96365; 96366; 96367; 96368; 96375; 96376; 99291; G0378; J0456; J0696; J1100; J1940; J1956; J7512; Q9967